=== PATIENT | female | born 1990 | race Two or more races ===

== ENCOUNTER 2018-06-30 09:22 | Outpatient (CLI) | payer OTHER ==
[~2018-06-30 09:22] MED LIST: CEFTIN250 MG PO; CIPRO500 MG PO; FLOVENT13 G1 PO; SINGULAIR10 MG PO; SYNTHROID75 MCG PO; TRAM1TAB PO; URIN D.S. TABLE1 TAB PO
== END 2018-06-30 09:24 | disposition home or self-care (01) ==
LOC: SONOGRAMA 09:22
DX: E03.8 Other specified hypothyroidism (principal)

== ENCOUNTER 2022-04-26 16:57 | Emergency (ER) | payer OTHER ==
[~2022-04-26] VITALS: Ht 157.5 cm; Wt 119.7 kg
[2022-04-26] MEDS ORDERED: LEVSIN/SL0.125 MG SL (21:14)
[2022-04-26] MEDS ORDERED: OMEPRAZOLE20 MG PO (21:14)
== END 2022-04-26 22:12 | disposition home or self-care (01) ==
LOC: ER 16:57
DX: R10.11 Right upper quadrant pain (principal)

== ENCOUNTER 2023-05-14 09:06 | Emergency (ER) | payer OTHER ==
[~2023-05-14] VITALS: Ht 157.5 cm; Wt 117.9 kg
[~2023-05-14 09:06] MED LIST changes: +LEVSIN/SL0.125 MG SL; +OMEPRAZOLE20 MG PO
[2023-05-14 09:43] LABS: HEMATOCRIT 35.3 % (36.0-45.00); HEMOGLOBIN 11.7 g/dL (12.0-15.00); MEAN CELL VOLUME 78.3 fL (80.00-100.00); MEAN CORPUSCULAR HEMOGLOBIN 25.9 pg (27.00-32.0); MEAN CORPUSCULAR HGB CONC 33.1 g/dl (32.0-36.0); PLATELET COUNT 296 K/uL (150-450); RED BLOOD COUNT 4.51 M/uL (4.00-6.00); RED CELL DISTRIBUTION WIDTH 15.1 % (11.5-14.5)
[2023-05-14 10:10] LABS: ALBUMIN 3.2 gm/dL (3.4-5.0); BILIRUBIN TOTAL 0.34 mg/dL (0.3-1.2); CREATININE SERUM 0.65 mg/dL (0.55-1.02); GFR 104.97; POTASSIUM 3.52 mEq/L (3.5-5.1); TOTAL PROTEIN 7.2 gm/dL (6.4-8.2)
== END 2023-05-14 12:11 | disposition home or self-care (01) ==
LOC: ER
PROVIDERS: General Practice
DX: I10 Essential (primary) hypertension (principal); R07.89 Other chest pain; Z88.6 Allergy status to analgesic agent; Z91.018 Allergy to other foods

== ENCOUNTER → 2023-06-11 | Emergency (ER) | payer OTHER ==
[~2023-06-11] VITALS: Ht 157.5 cm; Wt 127.0 kg
[~2023-06-11] MED LIST changes: +COZAAR50 MG PO; +HYDRALAZINE HCL50 MG PO; +KETOROLAC TROMETHAMINE 60 MG VIAL IM ONE; +OMEPRAZOLE MAGN20 MG
== END | disposition left against medical advice (07) ==
LOC: ER 13:43
DX: M25.571 Pain in right ankle and joints of right foot (principal); Z87.09 Personal history of other diseases of the respiratory system; Z91.014 Allergy to mammalian meats; I10 Essential (primary) hypertension; E03.9 Hypothyroidism, unspecified

== ENCOUNTER 2024-03-30 08:59 | Outpatient (CLI) | payer OTHER ==
[~2024-03-30 08:59] MED LIST changes: +ACID REDUCER20 M1 PO; -KETOROLAC TROMETHAMINE 60 MG VIAL IM ONE; +SYNTHROID50 MCG PO; +ZESTRIL2.5 MG PO
== END 2024-03-30 09:03 | disposition home or self-care (01) ==
LOC: SONOGRAMA 08:59
PROVIDERS: ATTEND Pathology Anatomic Pathology & Clinical Pathology
DX: E04.1 Nontoxic single thyroid nodule (principal); D34 Benign neoplasm of thyroid gland; E06.3 Autoimmune thyroiditis